=== PATIENT | female | born 1960 | race Caucasian/White ===

== ENCOUNTER 2020-01-17 13:49 | Emergency (ER) | payer BC ==
[~2020-01-17] VITALS: Ht 160 cm; Wt 64.4 kg
[2020-01-17 13:52] VITALS: BP 71/34
[2020-01-17 14:31] LABS: ABSOLUTE LYMPHOCYTES 1.1 thou/uL (0.8-5.3); ABSOLUTE MONOCYTES 0.1 thou/uL (0.0-1.2); ABSOLUTE NEUTROPHILS 4.5 thou/uL (1.6-8.1); BASOPHILS 0.4 %; EOSINOPHILS 0.2 %; HEMATOCRIT 42.5 % (37.0-47.0); HEMOGLOBIN 14.8 gm/dL (12.0-15.0); LYMPHOCYTES 19.7 %; MCH 32.1 pg (26.0-34.0); MCHC 34.8 g/dL (28.0-37.0); MCV 92.2 fL (80.0-100.0); MONOCYTES 1.3 %; MPV 7.7 fl. (7.2-11.1); NUCLEATED RBCS 1 /100WBC; PLATELET COUNT* 274 thou/uL (150-400); POLYS 78.4 %; RBC 4.61 mil/uL (4.20-5.00); RDW-CV 12.5 % (10.5-14.5); WBC 5.8 thou/uL (4.0-11.0)
[2020-01-17 14:35] LABS: INFLUENZA A ANTIGEN Negative (Negative); INFLUENZA B ANTIGEN Negative (Negative)
[2020-01-17 14:40] LABS: CALCIUM 8.8 mg/dL (8.5-10.1); CREATININE 3.6 mg/dL (0.6-1.3)
[2020-01-17 14:42] LABS: POTASSIUM 2.7 mmol/L (3.5-5.1)
[2020-01-17 14:51] LABS: ALBUMIN 3.4 g/dL (3.4-5.0); APTT 28.1 Seconds (25.0-31.3); INR 1.2; PROTIME 12.7 Seconds (9.20-11.50); TOTAL BILIRUBIN 0.5 mg/dL (<0.1-1.0); TOTAL PROTEIN 7.1 g/dL (6.4-8.2)
[2020-01-17 17:42] LABS: URINE BILIRUBIN NEGATIVE (Negative); URINE BLOOD 3+ (Negative); URINE CLARITY CLOUDY; URINE COLOR DARK YELLOW; URINE GLUCOSE-RANDOM NEGATIVE (Negative); URINE KETONES TRACE (Negative); URINE PROTEIN 3+ (Negative); URINE SPECIFIC GRAVITY 1.025 (1.005-1.030); URINE UROBILINOGEN 0.2 E.U./dl (0.2-1.0)
[2020-01-17 17:43] LABS: URINE LEUKOCYTES-REFLEX 2+ (Negative); URINE NITRITE-REFLEX POSITIVE (Negative)
[2020-01-17 17:49] LABS: HYALINE CASTS 4-10 Moderate /LPF (None Seen); SQUAMOUS 4-10 Moderate /LPF (0-3)
[2020-01-17] MEDS ORDERED: VIBERZI100 MG PO (17:49)
[2020-01-17] MEDS ORDERED: LUNESTA3 MG PO (17:49)
[2020-01-17] MEDS ORDERED: NORCO 7.5-3251 EACH PO (17:49)
[2020-01-17 17:50] LABS: MUCUS 0-3 Light strn/LPF (None Seen)
[2020-01-17] MEDS ORDERED: LYRICA 75 MG CA75 MG PO (17:50)
[2020-01-17 17:51] LABS: BACTERIA-REFLEX >30 Many /HPF (None Seen); CRYSTALS None Seen /LPF (None Seen)
[2020-01-17 19:15] VITALS: BP 98/38
--- NOTE | 2020-01-17 20:06 | NUR ---
IJ PLACED BY ANETHESIA AT 1645, X-RAY CONFIRMED, LEVOPHED STARTED TITRATED PER PROTOCOL. PATIENT INTUBATED AT 1805, CONSENT SIGNED BY . DR. GARDUNO SPOKE WITH ABOUT PATIENTS CONDITION. OG PLACED, X-RAY CONFIRMATION. SEE EMAR FOR MEDICATION ADMINISTRATION.
--- NOTE | 2020-01-18 13:01 | EKG ---
[place] [address] ELECTROCARDIOGRAM REPORT Name: LURDES CARPENTER Room: [facility]#: [id number] Admission: 01/17/20 Attend Phys: Discharge: 01/17/20 Date of : 60 Date of Service: 01/17/20 1409 Report #: [id number] THIS REPORT FOR: //name// [facility] ED Test Date: 2020-01-17 Test Time: 14:09:16 Pat Name: LURDES CARPENTER Department: Room: [facility] Gender: F [employer] Em[employer] Dist[employer]: : 1960 Requested By: Lourdes Liriano Order Number: [id number] MD: Herve Tobias Measurements Intervals [place] Rate: 122 P: 27 TX: 132 QRS: 35 QRSD: 89 T: 26 QT: 324 QTc: 462 Interpretive Statements Sinus tachycardia No previous ECG available for comparison Electronically Signed On 01-18-2020 13:01:24 CDT by Herve Tobias [email or web address] <ELECTRONICALLY SIGNED> By: Herve Tobias MD, [facility] 01/18/20 1301 1409 08 Herve Tobias MD, [facility] /EPI
== END 2020-01-17 20:21 | disposition still patient (30) ==
LOC: EDSEX 13:49 → M.ERS 13:49 → M.TBA-ER 17:31 → M.ERS 20:21
PROVIDERS: Nurse Practitioner Family
DX: A41.9 Sepsis, unspecified organism (principal); Z20.828 Contact with and (suspected) exposure to other viral communicable diseases; I95.9 Hypotension, unspecified; R65.21 Severe sepsis with septic shock; N17.9 Acute kidney failure, unspecified; E87.2 Acidosis; J18.9 Pneumonia, unspecified organism; R11.2 Nausea with vomiting, unspecified; R19.7 Diarrhea, unspecified; Z87.442 Personal history of urinary calculi

== ENCOUNTER → 2020-07-15 | Outpatient (CLI) | payer BC ==
[~2020-07-15] MED LIST: LUNESTA3 MG PO; LYRICA 75 MG CA75 MG PO; NORCO 7.5-3251 EACH PO; VIBERZI100 MG PO
== END ==
LOC: M.LAB 09:08
PROVIDERS: ATTEND Podiatrist Foot & Ankle Surgery
DX: Z01.812 Encounter for preprocedural laboratory examination (principal); Z20.822 Contact with and (suspected) exposure to COVID-19